=== PATIENT | female | born 1955 | race Two or more races ===

== ENCOUNTER 2020-06-06 14:10 | Emergency (ER) | payer OTHER ==
[~2020-06-06] VITALS: Ht 167.6 cm; Wt 108.9 kg
[2020-06-06] MEDS ORDERED: EDARBI40 MG (14:28)
[2020-06-06] MEDS ORDERED: ALDACTONE25 MG (14:29)
== END 2020-06-06 16:43 | disposition home or self-care (01) ==
LOC: ER 14:10
DX: R51 Headache (principal); R53.81 Other malaise; Z03.818 Encounter for observation for suspected exposure to other biological agents ruled out